=== PATIENT | male | born 1940 | race Caucasian/White ===

== ENCOUNTER 2024-08-11 15:01 | Emergency (ER) | payer MEDICARE, BC ==
[~2024-08-11 15:01] MED LIST: Iopamidol 300 61% 100 ML VIAL FS ONE
[2024-08-11 15:49] LABS: Bilirubin Neg (Negative); Blood, Urine 50 (Negative); Glucose, Urine (Dipstick) Normal (Negative); Ketone, Urine Negative (Negative); Leukocyte 500 (Negative); Nitrite Negative (Negative); Protein, Urine (Dipstick) 30 mg/dl (Neg-Trace); Urobilinogen Normal mg/dL (Less than 2)
[2024-08-11 15:51] LABS: Clarity Turbid (Clear)
[2024-08-11 15:53] LABS: Troponin I Less than 0.010 ng/mL (< 0.028)
[2024-08-11 15:57] LABS: Bacteria/HPF 1+ HPF (None Seen); CAUTI Indications for Culture Pelvic or flank pain; Squamous Epithelial None Seen HPF (0-3); WBC/HPF Greater Than 50 HPF (0-3)
[2024-08-11 15:57] LABS: ALT (SGPT) 21 U/L (8-55); AST (SGOT) 24 U/L (5-34); Albumin 4.2 g/dL (3.4-4.8); Alkaline Phosphatase 79 U/L (40-110); Anion Gap 17 mmol/L (10-20); BUN (Urea Nitrogen) 12 mg/dL (8.4-25.7); Bilirubin, Total 0.9 mg/dL (0.2-1.2); Calc. Creatinine Clearance 0 mL/min (70-130); Calcium 9.5 mg/dL (7.8-10.44); Carbon Dioxide 22 mmol/L (23-31); Chloride 106 mmol/L (98-107); Estimated GFR 69; Globulin 2.8 g/dL (2.4-3.5); Glucose 115 mg/dL (83-110); Lipase 25 U/L (8-78); Potassium 4.5 mmol/L (3.5-5.1); Sodium 140 mmol/L (136-145)
[2024-08-11 15:59] LABS: Urine Culture Reflex Yes Yes
[2024-08-11 16:10] LABS: Eosinophils 2 % (0-10); Hemoglobin 12.2 g/dL (13.5-17.5); Lymphocytes 42 % (21-51); MDiff Complete? YES; Mean Corpuscular HGB CONC 33.9 g/dL (32.0-36.0); Mean Corpuscular Hemoglobin 32.1 pg (27.0-33.0); Mean Corpuscular Volume 94.7 fL (81.2-95.1); Mean Platelet Volume 9.1 fL (7.4-10.4); Monocytes 4 % (0-10); Neutrophil 41 % (42-75); Platelet Adequacy Comment Appears Adequate; Platelet Count 189 10x3/uL (150-450); Reactive Lymphocytes 10 % (0-10); Smudge Cells SLIGHT; White Blood Cell (WBC) Count 12.37 10x3/uL (3.5-10.5)
[2024-08-11] MEDS ORDERED: cefTRIAXone (ROCEPHIN) 1 GM VIAL ONE (16:25)
== END 2024-08-11 18:21 | disposition home or self-care (01) ==
LOC: CSHERS 15:01
DX: K59.00 Constipation, unspecified (principal); I10 Essential (primary) hypertension; E78.00 Pure hypercholesterolemia, unspecified; Z79.01 Long term (current) use of anticoagulants; Z79.82 Long term (current) use of aspirin; Z79.899 Other long term (current) drug therapy
CPT/HCPCS: 70450; 74177; 80053; 81001; 83690; 83735; 83880; 84484; 85025; 87086; 93005; 96365; 99284; J0696; 87077; Q9967